=== PATIENT | female | born 1985 | race Caucasian/White ===

== ENCOUNTER 2020-01-22 13:06 | Emergency (ER) | payer MEDICAID, SELFPAY ==
--- NOTE | ~2020-01-22 | XR_ITS ---
EXAMINATION: XR tibia fibula LT 2V INDICATION: Left leg pain TECHNIQUE: Two views of left tibia and fibula are obtained. COMPARISON: None available FINDINGS: There is soft tissue gas along the lateral margin of the proximal lower leg. No underlying osseous abnormality is identified. Bone alignment is normal. IMPRESSION: 1. Soft tissue gas of the proximal lower leg without underlying osseous abnormality. Reviewed, dictated and finalized at location A. IMPRESSION: 1. Soft tissue gas of the proximal lower leg without underlying osseous abnorma lity.
--- NOTE | ~2020-01-22 | XR_ITS ---
EXAMINATION: XR hand RT min 3V INDICATION: Right hand pain TECHNIQUE: Three views of the right hand are obtained. COMPARISON: None available FINDINGS: There is no fracture, dislocation, or subluxation. The bones, soft tissues, and joint space s are normal. IMPRESSION: 1. No acute osseous abnormality. Reviewed, dictated and finalized at location A.
--- NOTE | ~2020-01-22 | XR_ITS ---
EXAMINATION: XR hand LT min 3V INDICATION: Left hand pain TECHNIQUE: Three views of the left hand are obtained. COMPARISON: None available FINDINGS: Mild deformity in the tuft of the second distal phalanx likely reflects prior injury. There is no acute fracture, dislocation, or subluxation identified. The joint spaces are unremarkable. The soft tissues are normal. IMPRESSION: 1. No acute osseous abnormality. Reviewed, dictated and finalized at location A.
[2020-01-22 13:10] VITALS: BP 111/79; PULSE 108; RESP 18; TEMP 37.1; O2SAT 100
[2020-01-22] MEDS: ACETAMINOPHEN 500 MG TABLET 1000 MG PO (13:52)
--- NOTE | 2020-01-22 14:27 | ED.GENADULT ---
HPI - General Adult General Chief complaint: Animal Bite <Clement Kothari PA-C - Last Filed: 01/22/20 14:50> Stated complaint: Dog Bite <Clement Kothari PA-C - Last Filed: 01/22/20 14:50> Time Seen by Provider: 01/22/20 13:14 <Clement Kothari PA-C - Last Filed: 01/22/20 14:50> Source: patient <Clement Kothari PA-C - Last Filed: 01/22/20 14:50> Mode of arrival: ambulatory <Clement Kothari PA-C - Last Filed: 01/22/20 14:50> Limitations: no limitations <Clement Kothari PA-C - Last Filed: 01/22/20 14:50> History of Present Illness HPI narrative: Patient is a 34-year-old female who presents to emergency department for evaluation of abrasions and puncture wounds secondary to breaking up her dogs fighting notes that her dog's immunizations are up-to-date patient notes moderate aching pain at the proximal tibia fibula where she sustained bites to the anterior lateral phillips also notes pain to the bilateral hands where she has a few small puncture wounds over some of the dorsal digits patient otherwise resting comfortably in the room in no distress <Clement Kothari PA-C - Last Filed: 01/22/20 14:50> Related Data Allergies/adverse reactions: Allergies Allergy/AdvReac Type Severity Reaction Status Date / Time metoclopramide [From Reglan] Allergy Anxiety Verified 01/22/20 13:37 Penicillins Allergy Hives Verified 01/22/20 13:36 <Clement Kothari PA-C - Last Filed: 01/22/20 14:50> Review of Systems Review of Systems: All systems reviewed & are unremarkable except as noted in HPI and below <Clement Kothari PA-C - Last Filed: 01/22/20 14:50> PMFSH Social History Social History: Social History (Updated 01/22/20 @ 14:47 by Clement Kothari PA-C) Smoking status: Current every day smoker Gender identity (if verbalized by the patient): Female <Clement Kothari PA-C - Last Filed: 01/22/20 14:50> Exam Narrative: Exam Narrative: GENERAL: Well-appearing, well-nourished, and in no acute distress. HEAD: Normocephalic, atraumatic. EYES: PERRLA and EOMI. ENT: Nares clear, no rhinorrhea or epistaxis. Mucous membranes moist. EXTREMITIES: Normal range of motion. No edema. SKIN: Warm, dry, no rash. Puncture wounds and contusion to the proximal anterior left lateral phillips. Abrasions and contusions over the dorsal surface of the bilateral hands with a few small puncture wounds of the right hand over the digits NEURO: No focal deficits. Alert and oriented x3. Neurovascularly intact. Capillary refill less than 2 seconds PSYCH: Normal mood and affect. <TAYE Zamudio Last Filed: 01/22/20 14:50> Course Course Emergency Course: Patient in the room in no distress aware of case findings treatment plan and diagnosis agreeing to follow-up as directed or to return if symptoms worsen or concerns <Clement Kothari PA-C - Last Filed: 01/22/20 14:50> Vital Signs Vital signs: Vital Signs Temperature 98.7 F 01/22/20 13:10 Pulse Rate 108 H 01/22/20 13:10 Respiratory Rate 18 01/22/20 13:10 Blood Pressure 111/79 01/22/20 13:10 Pulse Oximetry 100 01/22/20 13:10 Temperature 97.3 F L 01/22/20 15:09 Pulse Rate 94 01/22/20 15:09 Respiratory Rate 20 01/22/20 15:09 Blood Pressure 123/71 01/22/20 15:09 Pulse Oximetry 99 01/22/20 15:09 <TAYE Zamudio Last Filed: 01/22/20 14:50> Vital Signs Temperature 98.7 F 01/22/20 13:10 Pulse Rate 108 H 01/22/20 13:10 Respiratory Rate 18 01/22/20 13:10 Blood Pressure 111/79 01/22/20 13:10 Pulse Oximetry 100 01/22/20 13:10 Temperature 97.3 F L 01/22/20 15:09 Pulse Rate 94 01/22/20 15:09 Respiratory Rate 20 01/22/20 15:09 Blood Pressure 123/71 01/22/20 15:09 Pulse Oximetry 99 01/22/20 15:09 <Helen Solares MD - Last Filed: 01/22/20 16:53> Medical Decision Making MDM Narrative Medical decision making narrative: Patients injury o
[2020-01-22 15:09] VITALS: BP 123/71; PULSE 94; RESP 20; TEMP 36.3; O2SAT 99
== END 2020-01-22 15:12 | disposition home or self-care (01) ==
PROVIDERS: Emergency Provider General Practice
DX: S81.852A Open bite, left lower leg, initial encounter (principal); S61.451A Open bite of right hand, initial encounter; F17.200 Nicotine dependence, unspecified, uncomplicated; W54.0XXA Bitten by dog, initial encounter
CPT/HCPCS: 73130; 73590; 99284; A9270